=== PATIENT | male | born 1970 | race Caucasian/White ===

== ENCOUNTER 2022-11-16 08:07 | Inpatient (IN) | payer OTHER ==
[~2022-11-16] VITALS: Ht 190.5 cm; Wt 145.8 kg
[2022-11-16 09:21] LABS: Albumin, Blood 3.8 g/dL (3.4-5.0); Albumin/Globulin Ratio 0.9 (0.8-1.8); Bilirubin, Total 0.6 mg/dL (0.1-1.0); Bun/Creatinine Ratio 15.3 (12.0-20.0); Calcium, Blood 9.2 mg/dL (8.5-10.1); Creatinine, Blood 0.92 mg/dL (0.60-1.20); Globulin, Blood 4.1 g/dL (2.2-4.0); Potassium, Blood 4.1 mmol/L (3.5-5.5); Total Protein, Blood 7.9 g/dL (6.4-8.2)
[2022-11-16 09:43] LABS: BASOPHILS ABSOLUTE AUTO 0.04 K/mm3 (0.00-0.23); BASOPHILS PERCENT AUTO 1 % (0-2); EOSINOPHILS ABSOLUTE AUTO 0.06 K/mm3 (0.00-0.68); EOSINOPHILS PERCENT AUTO 1 % (0-6); Hematocrit 47.3 % (37.0-53.0); IMMATURE GRAN ABSOLUTE AUTO 0.05 K/mm3 (0.00-0.10); IMMATURE GRAN PERCENT AUTO 1 % (0-1); LYMPHOCYTES ABSOLUTE AUTO 1.94 K/mm3 (0.84-5.20); LYMPHOCYTES PERCENT AUTO 23 % (21-46); MONOCYTES ABSOLUTE AUTO 0.83 K/mm3 (0.16-1.47); MONOCYTES PERCENT AUTO 10 % (4-13); Mean Corpuscular HGB 31.5 pg (26.0-34.0); Mean Corpuscular HGB Conc 33.8 g/dL (31.5-36.5); Mean Corpuscular Volume 93 fL (80-100); Mean Platelet Volume 11.5 fL (9.1-12.4); NEUTROPHILS ABSOLUTE AUTO 5.48 K/mm3 (1.96-9.15); NEUTROPHILS PERCENT AUTO 65 % (41-73); Platelet Count 184 K/mm3 (150-400); RDW Coefficient Variation 12.5 % (11.7-14.2); RDW Standard Deviation 43.4 fL (35.1-46.3); Red Blood Cell Count 5.08 M/mm3 (4.30-5.90)
[2022-11-16 15:50] LABS: Anti-Xa UFH, PHA Monitoring <0.10 IU/mL; International Normalized Ratio 1.16; Prothrombin Time Results 12.1 Sec (9.7-11.5)
[2022-11-16 15:57] VITALS: BP 155/111
[2022-11-16] MEDS ORDERED: OZEMPIC1 MG/0.72 SC (16:10)
--- NOTE | 2022-11-16 16:38 | NUR ---
ADMIT TO PCU: PATIENT ALERT AND ORIENTED X4. ABLE TO STAND AND TRANSFER TO BED IND. DENIES NUMBNESS/TINGLING. PERRLA. ON ROOM AIR, LUNGS SOUNDING CLEAR. DENIES COUGH. EVEN AND UNLABORED RESPIRTATIONS. SATING ABOVE 95% ON ROOM AIR. TELE SHOWING AFLUTTER WITH HR 100-110'S AT REST AND UP TO 140'S WITH ACTIVITY. DENIES CHEST PAIN/PRESSURE/PALPITATIONS AT THIS TIME. ECHO BEING DONE. PPP. NO EDEMA NOTED. HEPARIN GTT. PLAN FOR ANGIO TOMORROW AM, NPO AT MIDNIGHT. DENIES ABDOMINAL PAIN/NAUSEA. EATING AND VOIDING WNL. LAST BM THIS AM. UP TO BATHROOM WITH SBA TO HELP MANAGE LINES/CORDS. BOWEL TONES PRESENT. DISCOLORTAION TO BLE, NO OPEN WOUNDS/SORES. SKIN OVERALL C/D/I. MED REC COMPLETED. CALL LIGHT IN REACH. PATIENT EDUCATED ON FIRE RISK AND IGNITION SOURCES. PATIENT DENIES HAVING ANY IGNITION SOURCES.
[2022-11-16 17:06] VITALS: BP 144/102
--- NOTE | 2022-11-16 17:30 | NUR ---
DR. WEIR BY TO ASSESS PATIENT. ORDERS FOR THIS RN TO PLACE: LASIX PO 20MG DAILY, STARTING [address] ECHO COMPLETED. PATIENT TALKING TO FAMILY ON PHONE. HEPARIN GTT INFUSING PER EMAR.
--- NOTE | 2022-11-16 18:51 | NUR ---
SHIFT SUMMARY: SEE PREVIOUS NOTES. NO ACUTE CHANGES. PATIENT SITTING AT BEDSIDE EATING DINNER AT THIS TIME. ECHO COMPLETED. WILL BE NPO AT MIDNIGHT. TELE CONTINUES TO SHOW AFLUTTER. ROOM AIR. HEPARIN GTT INFUSING PER EMAR. PATIENT EDUCATED ON FALL RISK WITH HEPARIN GTT. PATIENT VERBALIZES HE WILL CALL PRIOR TO GETTING UP.
[2022-11-16 19:43] VITALS: BP 168/106
--- NOTE | 2022-11-16 21:32 | NUR ---
SAFETY & EDUCATION PT & FAMILY EDUCATED RE: IGINITION SOURCES AND RISK OF INJURY WHILE OXYGEN IS IN USE. PT DENIES SMOKING & PT AND FAMILY VERBALIZE UNDERSTANDING.
[2022-11-16 22:58] VITALS: BP 154/108
[2022-11-17] VITALS (10 sets, daily range): BP systolic 102–156; BP diastolic 74–112
[2022-11-17 04:24] LABS: BASOPHILS ABSOLUTE AUTO 0.05 K/mm3 (0.00-0.23); BASOPHILS PERCENT AUTO 1 % (0-2); EOSINOPHILS ABSOLUTE AUTO 0.12 K/mm3 (0.00-0.68); EOSINOPHILS PERCENT AUTO 1 % (0-6); Hematocrit 49.6 % (37.0-53.0); Hemoglobin 16.8 g/dL (13.5-17.5); IMMATURE GRAN ABSOLUTE AUTO 0.05 K/mm3 (0.00-0.10); IMMATURE GRAN PERCENT AUTO 1 % (0-1); LYMPHOCYTES ABSOLUTE AUTO 3.82 K/mm3 (0.84-5.20); LYMPHOCYTES PERCENT AUTO 37 % (21-46); MONOCYTES ABSOLUTE AUTO 1.01 K/mm3 (0.16-1.47); MONOCYTES PERCENT AUTO 10 % (4-13); Mean Corpuscular HGB 31.6 pg (26.0-34.0); Mean Corpuscular HGB Conc 33.9 g/dL (31.5-36.5); Mean Corpuscular Volume 93 fL (80-100); Mean Platelet Volume 11.7 fL (9.1-12.4); NEUTROPHILS PERCENT AUTO 52 % (41-73); Platelet Count 193 K/mm3 (150-400); RDW Coefficient Variation 12.6 % (11.7-14.2); Red Blood Cell Count 5.32 M/mm3 (4.30-5.90); White Blood Cell Count 10.45 K/mm3 (4.00-11.30)
--- NOTE | 2022-11-17 04:47 | NUR ---
SHIFT SUMMARY SEE PREVIOUS NOTE. PT A&Ox4, CALLS AND COMMUNICATES NEEDS APPROPRIATELY. BP ELEVATED WITH DBP 100-110's, AFUTTER 70-100's, DENIES CP/PRESSURE. SpO2> 92% RA, DENIES SOB. SBA TO BATHROOM D/T IV POLE. CONTINENT OF URINE, NO BM THIS SHIFT. PT NPO AT 0000. HEPARIN gtt @ 17units/hr PER EMAR, MANAGED BY PHARMACY. NO OTHER EVENTS, WILL REPORT TO ONCOMING RN.
[2022-11-17 04:56] LABS: Anion Gap 7 mmol/L (6-16); Blood Urea Nitrogen 13 mg/dL (8-24); Bun/Creatinine Ratio 16.7 (12.0-20.0); CHOL/HDL RATIO 3.4; CO2, Blood 27 mmol/L (21-32); Calcium, Blood 8.8 mg/dL (8.5-10.1); Chloride, Blood 108 mmol/L (98-108); Cholesterol 151 mg/dL (50-200); Creatinine, Blood 0.78 mg/dL (0.60-1.20); Glomerular Filtration Rate 107 (60-); Glucose, Blood 96 mg/dL (70-99); HDL Cholesterol 45 mg/dL (>39); Low Density Lipoprotein Chol 92 mg/dL (0-110); Potassium, Blood 3.9 mmol/L (3.5-5.5); Sodium, Blood 142 mmol/L (136-145); Triglycerides 69 mg/dL (30-160); Very Low Density Lipoprot Chol 13 mg/dL (6-32)
--- NOTE | 2022-11-17 09:13 | NUR ---
AM NOTE: PATIENT ALERT AND ORIENTED. ABLE TO MAKE NEEDS KNOWN. USING CALL LIGHT. DENIES NUMBNESS/TINLING. PERRLA. STRONG BILATERAL STRIPER MACHINE. NO WEAKNESS NOTED. ON ROOM AIR SATING ABOVE 95%. DENIES SOB/COUGH. LUNGS SOUNDING CLEAR AND DIM IN BASES. TELE SHOWING AFLUTTER WITH HR 80-110'S. DENIES CHEST PAIN/PRESSURE/PALPITATIONS. BP IMPROVING. PPP. HEPARIN GTT INFUSING. PLAN FOR ANGIO THIS AM. PATIENT REMAINS NPO. MINIMAL EDEMA NOTED TO BLE. DENIES ABDOMINAL PAIN/NAUSEA. USING URINAL TO VOID. BOWEL TONES PRESENT. PATIENT EDUCATED ON FIRE RISK AND IGNITION SOURCES. CALL LIGHT IN REACH. SITTING UP IN BED AND DENIES NEEDS AT THIS TIME.
--- NOTE | 2022-11-17 11:19 | NUR ---
PATIENT TO HEART CENTER AT THIS TIME. PHARMACY CALLED TO UPDATE ON HEPARIN. AND PORT STEWARD UPDATED ON TRANSFER TO HEART CENTER.
--- NOTE | 2022-11-17 13:51 | NUR ---
THIS RN DISCUSSED WITH DR. BLOUNT IN PERSON ANTIOCOAGS AFTER ANGIOGRAM. DEFER TO HOSPITALISTS/DR. PATTEN. THIS RN RE-READ DR. PATTEN NOTES DISCUSSING XERALTO. CALL PLACED TO DR. WEIR TO DISCUSS ANTICOAGULATION. PLAN TO DC HEPARIN AND START XERALTO. DR. WEIR TO PLACE XERALTO ORDERS. CALL PLACED TO UPDATE PHARMACY TO UPDATE ON HEPARIN DC.
--- NOTE | 2022-11-17 14:38 | NUR ---
PATIENT POST ANGIOGRAM, RIGHT RADIAL AND RIGHT AC VENOUS ACCESS. RIGHT RADIAL WNL. ARM BOARD AND TR BAND IN PLACE. PPP. NO SIGNS OF BLEEDING. SOFT AND NONTENDER. POST VITAL IN PROGRESS. SEE PREVIOUS NOTE REGARDING ANTICOAGULATION. PATIENT DENIES CHEST PAIN/PRESSURE. TELE CONTINUES TO SHOW AFLUTTER WITH HR 70-90'S. BP IMPROVING WITH LAST BP 139/108. CALL LIGHT IN REACH. PATIENT TALKING WITH FAMILY ON PHONE.
--- NOTE | 2022-11-17 18:50 | NUR ---
SHIFT SUMMARY: NO ACUTE CHANGES. SEE PREVIOUS NOTES. TR BAND REMOVED AND RIGHT RADIAL SITE WNL, ARM BOARD REMAINS IN PLACE. BP IMPROVING. PO XERALTO GIVEN PER EMAR. REMAINS ON ROOM AIR, AFLUTTER WITH HR 70-80'S. DENIES CHEST PAIN/PRESSURE/PALPITATIONS. EATING AND VOIDING WNL. USING URINAL TO VOID. CALL LIGHT IN REACH. WILL CONTINUE TO MONITOR AND REPORT OFF TO ONCOMING RN.
[2022-11-18 03:33] VITALS: BP 123/83
--- NOTE | 2022-11-18 04:49 | NUR ---
SHIFT SUMMARY SEE PREVIOUS NOTE. PT A&Ox4, CALLS AND COMMUNICATES NEEDS APPROPRIATELY. BP STABLE, AFUTTER 60-100's, DENIES CP/PRESSURE. SpO2> 92% RA, DENIES SOB. IND TO BATHROOM. CONTINENT OF URINE, NO BM THIS SHIFT. R RADIAL SITE REMAINS WNL, C/D/I, ARM BOARD IN PLACE. R VENOUS SITE REMAINS WNL, C/D/I. NO OTHER EVENTS, WILL REPORT TO ONCOMING RN.
[2022-11-18 04:55] LABS: BASOPHILS ABSOLUTE AUTO 0.04 K/mm3 (0.00-0.23); BASOPHILS PERCENT AUTO 0 % (0-2); EOSINOPHILS ABSOLUTE AUTO 0.07 K/mm3 (0.00-0.68); EOSINOPHILS PERCENT AUTO 1 % (0-6); Hematocrit 50.3 % (37.0-53.0); Hemoglobin 17.3 g/dL (13.5-17.5); IMMATURE GRAN ABSOLUTE AUTO 0.03 K/mm3 (0.00-0.10); IMMATURE GRAN PERCENT AUTO 0 % (0-1); LYMPHOCYTES ABSOLUTE AUTO 2.49 K/mm3 (0.84-5.20); LYMPHOCYTES PERCENT AUTO 28 % (21-46); MONOCYTES ABSOLUTE AUTO 0.87 K/mm3 (0.16-1.47); MONOCYTES PERCENT AUTO 10 % (4-13); Mean Corpuscular HGB Conc 34.4 g/dL (31.5-36.5); Mean Corpuscular Volume 93 fL (80-100); Mean Platelet Volume 11.8 fL (9.1-12.4); NEUTROPHILS PERCENT AUTO 61 % (41-73); Platelet Count 189 K/mm3 (150-400); RDW Coefficient Variation 12.5 % (11.7-14.2); RDW Standard Deviation 42.7 fL (35.1-46.3)
[2022-11-18 05:14] LABS: Bun/Creatinine Ratio 23.4 (12.0-20.0); Calcium, Blood 8.8 mg/dL (8.5-10.1); Creatinine, Blood 0.85 mg/dL (0.60-1.20); Potassium, Blood 3.8 mmol/L (3.5-5.5)
[2022-11-18 08:20] VITALS: BP 127/97
[2022-11-18] MEDS ORDERED: ASPI81CH PO (09:03)
[2022-11-18] MEDS ORDERED: ATOR80 PO (09:06)
[2022-11-18] MEDS ORDERED: METO25ER PO (09:06)
[2022-11-18] MEDS ORDERED: XARELTO20 MG PO (09:07)
[2022-11-18] MEDS ORDERED: ENTRESTO 24 MG1 EACH PO (09:08)
[2022-11-18] MEDS ORDERED: SPIR25 PO (09:08)
[2022-11-18] MEDS ORDERED: FURO20 PO (09:08)
--- NOTE | 2022-11-18 09:57 | NUR ---
DISCHARGE SUMMARY PT A/O X4, VSS, TOLERATING PO, INDEPENDENT IN HIS ROOM, DENIES PAIN THIS MORNING, DENIES CHEST PAIN/PRESSURE AND SOB. RW ARTERIAL ACCESS SITE IS C/D/I AND COVERED WITH A SMALL OPSITE, SMALL TEGADERM CHG LOCATED ON HIS RAC WHICH IS ALSO C/D/I. DISCUSSED DISCHARGE INFORMATION WITH HIM INCLUDING HOME CARE, MEDICATIONS, AND FOLLOW UP APPOINTMENTS WITH HIS PCP AND CARDIOLOGY, PROVIDED HIM WITH CONTACT INFORMATION FOR CARDIOLOGY SHOULD HE HAVE QUESTIONS BEFORE HIS FOLLOW UP. PRINTED EDUCATION PROVIDED ON HEART FAILURE AND ASSOCIATED DC HF MEDICATIONS. PT HAD NO QUESTIONS AT THIS TIME, IV ACCESS REMOVED, PT DRESSED INDEPENDENTLY AND LEFT AMBULATORY TO GO HOME.
== END 2022-11-18 09:35 | disposition home or self-care (01) | DRG 286 ==
LOC: ER 08:07 → PCU 13:38
PROVIDERS: Emergency Medicine; Internal Medicine Cardiovascular Disease; Pharmacist; ADMIT Family Medicine
PROC: 4A023N8 Measurement of Cardiac Sampling and Pressure, Bilateral, Percutaneous Approach (ICD-10-PCS; principal; 2022-11-17)
PROC: B2111ZZ Fluoroscopy of Multiple Coronary Arteries using Low Osmolar Contrast (ICD-10-PCS; 2022-11-17)
PROC: B2161ZZ Fluoroscopy of Right and Left Heart using Low Osmolar Contrast (ICD-10-PCS; 2022-11-17)
DX: I25.110 Atherosclerotic heart disease of native coronary artery with unstable angina pectoris (principal); I50.21 Acute systolic (congestive) heart failure; I48.92 Unspecified atrial flutter; Z68.41 Body mass index [BMI] 40.0-44.9, adult; I27.22 Pulmonary hypertension due to left heart disease; E11.9 Type 2 diabetes mellitus without complications; E78.5 Hyperlipidemia, unspecified; E66.01 Morbid (severe) obesity due to excess calories; G47.30 Sleep apnea, unspecified; I16.0 Hypertensive urgency; I11.0 Hypertensive heart disease with heart failure; I42.8 Other cardiomyopathies
CPT/HCPCS: 36415; 71046; 76937; 80048; 80053; 80061; 82947; 83036; 83880; 84443; 84484; 85025; 85379; 85520; 85610; 85730; 93005; 93010; 93460; 99152; 99285-25; A9270; C1769; C1887; C1894; C8929; J1644; J1940; J2250; J3010; J7030; J7050; Q9957; Q9967

== ENCOUNTER 2023-01-04 06:41 | Day surgery (SDC) | payer OTHER ==
[~2023-01-04 06:41] MED LIST: ASPI81CH PO; ATOR80 PO; ENTRESTO 24 MG1 EACH PO; FARXIGA10 MG PO; FURO20 PO; METO25ER PO; OZEMPIC1 MG/0.72 SC; SPIR25 PO; XARELTO20 MG PO
== END 2023-01-04 23:02 | disposition home or self-care (01) ==
LOC: MHTC 06:41
DX: I48.91 Unspecified atrial fibrillation (principal); I11.0 Hypertensive heart disease with heart failure; I50.22 Chronic systolic (congestive) heart failure; I48.3 Typical atrial flutter; E78.5 Hyperlipidemia, unspecified; E66.01 Morbid (severe) obesity due to excess calories; I25.2 Old myocardial infarction; Z79.01 Long term (current) use of anticoagulants; Z79.82 Long term (current) use of aspirin; Z79.899 Other long term (current) drug therapy; Z68.41 Body mass index [BMI] 40.0-44.9, adult
CPT/HCPCS: 82947; 92960; 93005; 93010; J2704; J7030

== ENCOUNTER 2024-07-08 06:12 | Day surgery (SDC) | payer OTHER ==
[~2024-07-08] VITALS: Ht 190.5 cm; Wt 158.8 kg
[2024-07-08] VITALS (16 sets, daily range): BP systolic 87–128; BP diastolic 57–82
[~2024-07-08 06:12] MED LIST changes: -ATOR80 PO; +ENTRESTO 49 MG1 EACH PO; +LIPITOR80 MG PO; +MECL25 PO; +METOPROLOL PO
[2024-07-08] MEDS ORDERED: NS 1,000 ML IV ONE (06:42)
[2024-07-08] MEDS ORDERED: METO50ER PO (07:05)
--- NOTE | 2024-07-08 09:50 | NUR ---
PATIENT ADMITTED TO HEART CENTER AT 0700 FOR SYNCHRONIZED CARDIOVERSION WITH ANESTHESIA. MEDS/HX REVIEWED. PT NPO. DR SANDS AT BEDSIDE AT 0735. PRE EKG COMPLETED AND REVIEWED. 50J SYNCHRONIZED CARDIOVERSION AT 0746, PT CONVERTED TO SINUS NIRMAL IN THE 50'S. PT AROUSES TO VOICE SHORTLY AFTER PROCEDURE. 0845, VSS. VERBAL AND WRITTEN DISCHARGE INSTRUCTIONS GIVEN TO PT WITH CLEAR UNDERSTANDING. POST EKG TAKEN AND SHOWN TO DR SANDS. PT DC'D HOME IN STABLE CONDITION AT 0850. FRIEND DRIVING PT HOME.
[2024-07-08] MEDS ORDERED: Lidocaine HCl 2% 10 ML SDA INJ ONE (16:21)
[2024-07-08] MEDS ORDERED: Propofol 10mg/ml 20 ml Vial (Procedural) IV ONE (16:21)
== END 2024-07-08 23:25 | disposition home or self-care (01) ==
LOC: MHTC 06:12
DX: I48.0 Paroxysmal atrial fibrillation (principal); I48.92 Unspecified atrial flutter; I25.10 Atherosclerotic heart disease of native coronary artery without angina pectoris; E78.5 Hyperlipidemia, unspecified; E11.9 Type 2 diabetes mellitus without complications; I10 Essential (primary) hypertension; I42.8 Other cardiomyopathies; Z79.01 Long term (current) use of anticoagulants; Z79.85 Long-term (current) use of injectable non-insulin antidiabetic drugs; Z79.899 Other long term (current) drug therapy
CPT/HCPCS: 92960; 93005; 93010; J2003; J2704; J7030

== ENCOUNTER 2024-07-08 10:12 | Inpatient (IN) | payer OTHER ==
[~2024-07-08] VITALS: Ht 190.5 cm; Wt 154.4 kg
[~2024-07-08 10:12] MED LIST changes: +METO50ER PO
[2024-07-08 10:45] VITALS: BP 110/76
--- NOTE | 2024-07-08 11:05 | NUR ---
NURSING PCU DAYSHIFT: Assumed care of pt at approx 1030. Arrived as a direct admit from [facility], ambulated through unit to room while carrying personal belongings. Oriented to room and call system. Denies any pain/discomfort. Skin intact w/o c/o wounds per pt. Tele place, NSR, no c/o CP/pressure, SBP 110, trace BLE edema. L/S fairly cta t/o w/dim RLL, O2 sat mid 90's on RA, denies dypsnea, no noted cough. Abd obese, SNT, BT+, voids w/o difficulty per pt. Notified PMD of pt arrival to unit, awaiting rounding from PMD and cardiology. Discussed plan of care, questions addressed. Pt denies any current needs, call light in reach, cont to monitor for changes, monitor for new d/o.
[2024-07-08 12:51] VITALS: BP 112/61
[2024-07-08 12:53] VITALS: BP 98/65
[2024-07-08] MEDS ORDERED: FLU VACC TS2024-25(6MOS UP)/PF 45 MCG/0.5 ML SYRINGE IM SCH (13:05)
[2024-07-08 15:31] VITALS: BP 116/79
[2024-07-08 16:49] LABS: Bun/Creatinine Ratio 16.5 (12.0-20.0); Calcium, Blood 9.1 mg/dL (8.5-10.1); Creatinine, Blood 0.91 mg/dL (0.60-1.20); Magnesium, Blood 1.9 mg/dL (1.6-2.4); Potassium, Blood 4.1 mmol/L (3.5-5.5)
[2024-07-08] MEDS ORDERED: Furosemide 20 MG Tab PO SCH (18:00)
[2024-07-08] MEDS ORDERED: Sotalol HCl 80 MG Tab PO SCH ×2 (18:00→21:00)
--- NOTE | 2024-07-08 18:14 | NUR ---
NURSING PCU DAYSHIFT SUMMARY: Pt has done well since arrival to the unit. HR decreased to mid 40's for short period at which time pt was symptomatic c/o dizziness and general "not feeling too good", symptoms improved when HR returned to 50-60's. Seen by PMD and cardiology, new d/o received. Discussed bradycardia w/grubber, metoprolol discontinued. 1st dose of Sotalol administered at 1730 w/EKG scheduled at 1930 (2 hrs after med administration per grubber). Per pt care plan, pt will continue to receive daily a.m. EKGs x 3 days along w/EKG 2 hours following Sotalol dose (BID). No s/s of acute distress, call light in reach, monitor until rpt is given to NOC RN.
[2024-07-08 19:35] VITALS: BP 113/74
[2024-07-08] MEDS ORDERED: Sacubitril/Valsartan 49 MG/51 MG Tab PO SCH (21:00)
[2024-07-08] MEDS ORDERED: Insulin Human Lispro 100 Units/ML 3ML Syringe SC SCH (21:00)
[2024-07-08] MEDS ORDERED: Metoprolol Succinate 50 MG TABCR PO SCH (21:00)
[2024-07-08 23:25] VITALS: BP 94/62
[2024-07-09 03:52] LABS: BASOPHILS ABSOLUTE AUTO 0.04 K/mm3 (0.00-0.23); BASOPHILS PERCENT AUTO 0 % (0-2); EOSINOPHILS ABSOLUTE AUTO 0.13 K/mm3 (0.00-0.68); EOSINOPHILS PERCENT AUTO 1 % (0-6); Hemoglobin 13.8 g/dL (13.5-17.5); IMMATURE GRAN ABSOLUTE AUTO 0.07 K/mm3 (0.00-0.10); IMMATURE GRAN PERCENT AUTO 1 % (0-1); LYMPHOCYTES ABSOLUTE AUTO 3.41 K/mm3 (0.84-5.20); LYMPHOCYTES PERCENT AUTO 31 % (21-46); MONOCYTES ABSOLUTE AUTO 1.07 K/mm3 (0.16-1.47); MONOCYTES PERCENT AUTO 10 % (4-13); Mean Corpuscular HGB 32.1 pg (26.0-34.0); Mean Corpuscular HGB Conc 32.9 g/dL (31.5-36.5); Mean Corpuscular Volume 98 fL (80-100); Mean Platelet Volume 11.5 fL (9.1-12.4); NEUTROPHILS ABSOLUTE AUTO 6.34 K/mm3 (1.96-9.15); NEUTROPHILS PERCENT AUTO 57 % (41-73); Platelet Count 187 K/mm3 (150-400); RDW Coefficient Variation 12.9 % (11.7-14.2); RDW Standard Deviation 45.9 fL (35.1-46.3); White Blood Cell Count 11.06 K/mm3 (4.00-11.30)
[2024-07-09 04:11] LABS: Albumin, Blood 3.3 g/dL (3.4-5.0); Albumin/Globulin Ratio 0.9 (0.8-1.8); Bilirubin, Total 0.8 mg/dL (0.1-1.0); Calcium, Blood 8.7 mg/dL (8.5-10.1); Creatinine, Blood 0.95 mg/dL (0.60-1.20); Globulin, Blood 3.5 g/dL (2.2-4.0); Magnesium, Blood 2.1 mg/dL (1.6-2.4); Phosphorus, Blood 3.8 mg/dL (2.5-4.9); Total Protein, Blood 6.8 g/dL (6.4-8.2)
[2024-07-09 04:16] VITALS: BP 98/63
--- NOTE | 2024-07-09 06:05 | NUR ---
SHIFT SUMMARY PT ALERT AND ORIENTED X4, AFEBRILE, SR 70-80s WHILE AWAKE, SB 50s WHILE SLEEPING, BP STABLE, MAP >65, REFUSED CPAP AND CONTINUOUS PULSE OX, STATES "HE HAS NEVER USED A CPAP TO SLEEP", INDEPENDENT WITH AMBULATION, GAIT STEADY, VOIDS IN BATHROOM WITHOUT ASSIST, DENIES NEEDS OR C/O PAIN, EKG DONE AT 1930 PER ORDERS AND IN CHART ,SIDE RAILS UP X2 CALL LIGHT IN REACH
[2024-07-09 07:54] VITALS: BP 111/68
[2024-07-09 08:54] VITALS: BP 123/69
[2024-07-09] MEDS ORDERED: Atorvastatin 40 MG Tab PO SCH (09:00)
[2024-07-09] MEDS ORDERED: Spironolactone 25 MG Tab PO SCH (09:00)
[2024-07-09] MEDS ORDERED: Sotalol HCl 80 MG Tab PO SCH (09:00)
[2024-07-09] MEDS ORDERED: Empagliflozin 25 MG TAB PO SCH (09:00)
[2024-07-09] MEDS ORDERED: Rivaroxaban 10 MG Tab PO SCH (09:00)
--- NOTE | 2024-07-09 11:13 | NUR ---
PATIENT IS ALERT AND ORIENTED AND COOPERATIVE WITH CARE. MEDICATIONS PER EMAR, AND EKG PER ORDERS. VSS. WILL CONTINUE TO MONITOR
[2024-07-09 12:51] VITALS: BP 112/74
[2024-07-09 16:11] VITALS: BP 133/76
--- NOTE | 2024-07-09 16:56 | NUR ---
PATIENT IS ALERT AND ORIENTED AND COOPERATIVE WITH CARE. DR. NEVES AND DR. SINGLETON SAW THE PATIENT TODAY. MEDICATIONS PER EMAR. EKG FOLLOWING SOTALOL ADMINISTRATION. INDEPENDENT IN THE ROOM. NO C/O PAIN. WILL CONTINUE TO MONITOR
[2024-07-09 23:48] VITALS: BP 101/61
[2024-07-10 04:18] VITALS: BP 101/61
--- NOTE | 2024-07-10 06:43 | NUR ---
PATIENT SUMMURY: ALERT AND ORIENTED X 4. SINUS NIRMAL WITH RATE OF 58. DENIES CHEST PAIN AND DISCOMFORT. OXYGEN SATURATION ABOVE 90.
[2024-07-10 08:46] VITALS: BP 113/64
--- NOTE | 2024-07-10 10:40 | NUR ---
am note this rn assumed care at 0700. patient vital signs stable. tele sinus rythm 60s. patient is alert and oriented x4. neuro is intact. perrla. patient denies pain, chest pain/pressure or shortness of breath. see shift assessment for further detials. md santiago saw ekg this morning and okay'd to give sotalol this am. md larson in to see patient and plan to go home today. discharge orders are in.
[2024-07-10] MEDS ORDERED: SOTO80 PO (10:53)
[2024-07-10 11:16] VITALS: BP 125/75
--- NOTE | 2024-07-10 12:27 | NUR ---
update MD SINGLETON into room to notify patient that he is not able to discharge until tomorrow morning once receiving first 6 dose of sotalol in the hospital. ear nose and throat specialist updated md Ferrer. Plan for patient to get AM dose and then do repeat ekg after 2 hours of medication administeration and then okay to discharge.
[2024-07-10 13:08] LABS: Bun/Creatinine Ratio 19.2 (12.0-20.0); Calcium, Blood 8.9 mg/dL (8.5-10.1); Creatinine, Blood 0.84 mg/dL (0.60-1.20); Magnesium, Blood 2.3 mg/dL (1.6-2.4)
[2024-07-10 15:26] VITALS: BP 128/87
--- NOTE | 2024-07-10 17:22 | NUR ---
shift summary patient vitals remain stable. tele sinusbrady 59-60. Plan to continue sotalol and ekg two hours after taking sotalol and ekg at 0600 daily. Patient agrees with this plan. Patient is independent in adls and had a shower today. no acute changes since previous notes. see previous notes.
--- NOTE | 2024-07-10 17:34 | NUR ---
update this rn called by [employer] to notify of 3.2 second pause. patient was asymptomatic with this pause. this rn called md santiago to notify. Md SANTIAGO instructed to give evening sotalol at 2000 and do repeat ekg at 2200 and to send a picture to him.
[2024-07-10 19:53] VITALS: BP 128/78
[2024-07-10 23:09] VITALS: BP 115/67
[2024-07-11 05:00] LABS: Bun/Creatinine Ratio 21.1 (12.0-20.0); Calcium, Blood 8.4 mg/dL (8.5-10.1); Creatinine, Blood 0.8 mg/dL (0.60-1.20); Magnesium, Blood 2.3 mg/dL (1.6-2.4)
[2024-07-11 05:06] VITALS: BP 107/77
--- NOTE | 2024-07-11 05:10 | NUR ---
SHIFT SUMMURY: ALERT AND ORIENTED X 4. NO MOTOR OR SENSORY DEFICIT. SINUS NIRMAL RATE 56. DENIES CHEST PAIN, NAUSEA AND LIGHTHEADEDNESS. MAP > 65. SATURATION > 90.
[2024-07-11 08:03] VITALS: BP 112/76
--- NOTE | 2024-07-11 08:05 | NUR ---
AM ASSESSMENT: Pt sitting up in bed. States that he feels good. PT has good understanding of plan for Sotolol and EKG two hours later. Possible discharge after this. VSS. LS clear. HR reg. BT positive. Denies numbness, tingling, dizziness, lightheadedness or chest pain. Tele shows NSR/SB. Call light in reach. No needs at this time.
--- NOTE | 2024-07-11 10:40 | NUR ---
DISCHARGE: Pt was given verbal and written discharge instructions. Denies questions, verbalized understanding. IV was discontinued. Pt left via w/c. Stable at time of discharge
== END 2024-07-11 10:40 | disposition home or self-care (01) | DRG 309 ==
LOC: PCU 10:12
PROVIDERS: Hospitalist; Student in an Organized Health Care Education/Training Program; ADMIT Internal Medicine
PROC: 5A2204Z Restoration of Cardiac Rhythm, Single (ICD-10-PCS; principal; 2024-07-08)
DX: I48.91 Unspecified atrial fibrillation (principal); I50.22 Chronic systolic (congestive) heart failure; Z68.41 Body mass index [BMI] 40.0-44.9, adult; I48.92 Unspecified atrial flutter; I25.10 Atherosclerotic heart disease of native coronary artery without angina pectoris; E66.01 Morbid (severe) obesity due to excess calories; E11.9 Type 2 diabetes mellitus without complications; G47.33 Obstructive sleep apnea (adult) (pediatric); E78.5 Hyperlipidemia, unspecified; I11.0 Hypertensive heart disease with heart failure; Z79.01 Long term (current) use of anticoagulants; Z79.899 Other long term (current) drug therapy; I42.8 Other cardiomyopathies
CPT/HCPCS: 36415; 80048; 80053; 82947; 83735; 84100; 85025; 93005; 93010; 93246; 94762; A9270

== ENCOUNTER 2024-11-13 08:44 | Emergency (ER) | payer OTHER ==
[~2024-11-13] VITALS: Ht 188 cm; Wt 154.2 kg
[~2024-11-13 08:44] MED LIST changes: +SOTO80 PO
[2024-11-13] MEDS ORDERED: OZEMPIC1 MG/0.72 SQ (09:11)
[2024-11-13 09:26] LABS: BASOPHILS ABSOLUTE AUTO 0.04 K/mm3 (0.00-0.23); BASOPHILS PERCENT AUTO 1 % (0-2); EOSINOPHILS ABSOLUTE AUTO 0.11 K/mm3 (0.00-0.68); EOSINOPHILS PERCENT AUTO 1 % (0-6); Hematocrit 49.2 % (37.0-53.0); Hemoglobin 16.4 g/dL (13.5-17.5); IMMATURE GRAN ABSOLUTE AUTO 0.04 K/mm3 (0.00-0.10); IMMATURE GRAN PERCENT AUTO 1 % (0-1); LYMPHOCYTES ABSOLUTE AUTO 2.70 K/mm3 (0.84-5.20); LYMPHOCYTES PERCENT AUTO 32 % (21-46); MONOCYTES ABSOLUTE AUTO 0.65 K/mm3 (0.16-1.47); MONOCYTES PERCENT AUTO 8 % (4-13); Mean Corpuscular HGB Conc 33.3 g/dL (31.5-36.5); Mean Corpuscular Volume 95 fL (80-100); NEUTROPHILS ABSOLUTE AUTO 4.98 K/mm3 (1.96-9.15); NEUTROPHILS PERCENT AUTO 58 % (41-73); NRBC ABSOLUTE 0.00 K/mm3 (0.00-0.02); NRBC Auto 0.0 /100 WBC (0.0-0.2); Platelet Count 229 K/mm3 (150-400); RDW Coefficient Variation 12.7 % (11.7-14.2); RDW Standard Deviation 44.4 fL (35.1-46.3)
[2024-11-13] MEDS ORDERED: Metoprolol Tartrate 1 MG/ML 5 ML VIAL IV ONE (09:30)
[2024-11-13] MEDS ORDERED: NS 1,000 ML IV SCH (09:30)
[2024-11-13 09:34] LABS: Alanine Aminotransfer (ALT/SGP 75.0 U/L (12-78); Albumin, Blood 3.4 g/dL (3.4-5.0); Albumin/Globulin Ratio 0.8 (0.8-1.8); Anion Gap 8.0 mmol/L (3-11); Aspartate Aminotrans (AST/SGOT 36.0 U/L (12-37); Bilirubin, Total 0.4 mg/dL (0.1-1.0); Blood Urea Nitrogen 12.0 mg/dL (8-24); CO2, Blood 25.0 mmol/L (21-32); Calcium, Blood 8.4 mg/dL (8.5-10.1); Chloride, Blood 108.0 mmol/L (98-108); Creatinine, Blood 0.71 mg/dL (0.60-1.20); Globulin, Blood 4.1 g/dL (2.2-4.0); Glucose, Blood 148.0 mg/dL (70-99); Potassium, Blood 3.9 mmol/L (3.5-5.5); Sodium, Blood 137.0 mmol/L (136-145); Total Protein, Blood 7.5 g/dL (6.4-8.2)
[2024-11-13 13:15] VITALS: BP 132/93
[2024-11-13] MEDS ORDERED: METO50ER PO (13:34)
== END 2024-11-13 13:43 | disposition home or self-care (01) ==
LOC: ER 08:44
PROVIDERS: Student in an Organized Health Care Education/Training Program
DX: I48.0 Paroxysmal atrial fibrillation (principal); E11.65 Type 2 diabetes mellitus with hyperglycemia; I42.8 Other cardiomyopathies; I25.10 Atherosclerotic heart disease of native coronary artery without angina pectoris; R94.31 Abnormal electrocardiogram [ECG] [EKG]; E78.5 Hyperlipidemia, unspecified; I11.0 Hypertensive heart disease with heart failure; I50.9 Heart failure, unspecified; G47.33 Obstructive sleep apnea (adult) (pediatric); Z79.85 Long-term (current) use of injectable non-insulin antidiabetic drugs; Z79.01 Long term (current) use of anticoagulants; Z79.899 Other long term (current) drug therapy
CPT/HCPCS: 71046; 80053; 85025; 93005; 93010; 96361; 96374; 99285-25; J7030